=== PATIENT | female | born 1950 | race Caucasian/White ===

== ENCOUNTER 2022-07-08 13:38 | Day surgery (SDCO) | payer MEDICARE ==
[~2022-07-08] VITALS: Ht 152.4 cm; Wt 45.4 kg
[2022-07-08 16:02] LABS: ALBUMIN 3.5 g/dL (3.4-5.0); BASOPHIL 0.4 % (0-2); BILIRUBIN - TOTAL 0.9 mg/dL (0.2-1.0); CREATININE 0.75 mg/dL (0.51-0.95); EOSINOPHIL 0.1 % (0-7); GLOBULIN (CALCULATION) 3.6 g/dL; HCT 43.6 % (37.0-47.0); HGB 13.6 g/dl (12.5-16.0); LYMPHOCYTE 5.5 % (15-48); MCH 29.2 pg (25.0-31.0); MCHC 31.2 g/dL (32.0-36.0); MCV 93.6 fL (78.0-100.0); MONOCYTE 6.2 % (0-12); NEUTROPHIL 87.3 % (41-80); NRBC 0; PLT 210 K/uL (150-400); POTASSIUM 3.5 mmol/L (3.5-5.1); RBC 4.66 M/uL (4.20-5.40); RDW 16.3 % (11.5-14.0); TOTAL PROTEIN 7.1 g/dL (6.4-8.2); WBC 16.8 K/uL (4.0-10.5)
[2022-07-08 16:08] LABS: BILIRUBIN NEGATIVE (NEGATIVE); BLOOD 1+ Ery/uL (NEGATIVE); CLARITY HAZY (CLEAR); COLOR YELLOW (YELLOW); GLUCOSE (U) NORMAL (NORMAL); LEUKOCYTES 1+ Leu/uL (NEGATIVE); NITRITE POSITIVE (NEGATIVE); PROTEIN 1+ mg/dL (NEGATIVE); SPECIFIC GRAVITY 1.015 (1.001-1.030); pH 6.5 (5.0-9.0)
[2022-07-08 16:11] LABS: AMPHETAMINES NEGATIVE (NEGATIVE); BARBITURATES NEGATIVE (NEGATIVE); ECSTASY (MDMA) NEGATIVE (NEGATIVE); MARIJUANA (THC) NEGATIVE (NEGATIVE); METHADONE NEGATIVE (NEGATIVE); OPIATES NEGATIVE (NEGATIVE); OXYCODONE NEGATIVE (NEGATIVE)
[2022-07-08 16:17] LABS: BACTERIA 4+; MUCOUS MODERATE; SQUAMOUS EPITHELIAL CELLS RARE
[2022-07-08 17:01] LABS: LACTIC ACID 1.1 mmol/L (0.4-1.9)
--- NOTE | 2022-07-08 19:13 | NUR ---
PT TO FLOOR FROM ER. TAKE TO BR ON ADMIT TO FLOOR. PT HAS IV 22 LEFT F/A, WITH NS BOLUS PT IN GOOD CONDITION BED ALARM ON REPORT GIVEN TO NIGHT NURSE
--- NOTE | 2022-07-09 00:40 | NUR ---
1200: TYLENOL 325MG 2 TABLETS GIVEN FOR TEMPERATUE 100.7.
[2022-07-09 05:51] LABS: BASOPHIL 0.6 % (0-2); EOSINOPHIL 0.5 % (0-7); HCT 37.7 % (37.0-47.0); HGB 11.8 g/dl (12.5-16.0); LYMPHOCYTE 12.8 % (15-48); MCH 29.1 pg (25.0-31.0); MCHC 31.3 g/dL (32.0-36.0); MCV 92.9 fL (78.0-100.0); MPV 10.6 fL (6.0-9.5); NEUTROPHIL 77.4 % (41-80); NRBC 0; PLT 222 K/uL (150-400); RBC 4.06 M/uL (4.20-5.40); RDW 16.4 % (11.5-14.0); WBC 14.2 K/uL (4.0-10.5)
[2022-07-09 06:26] LABS: BUN/CREAT RATIO (CALC) 16.4 RATIO; CREATININE 0.67 mg/dL (0.51-0.95); POTASSIUM 3.5 mmol/L (3.5-5.1)
[2022-07-09] MEDS ORDERED: MACROBID100 MG PO (12:53)
--- NOTE | 2022-07-09 13:43 | NUR ---
PATIENT HAS NO PCP AND NO INSURANCE. WAS GIVEN INFORMATION ON THE [facility] FOR F/U
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
== END 2022-07-09 14:30 | disposition home or self-care (01) ==
LOC: FER 13:38 → FMS 16:30 → FER 18:26 → FMS 07-09 14:30
PROVIDERS: Nurse Practitioner Family; ADMIT Family Medicine
DX: A41.9 Sepsis, unspecified organism (principal); N30.01 Acute cystitis with hematuria; R53.1 Weakness; G93.40 Encephalopathy, unspecified; R73.03 Prediabetes; R73.9 Hyperglycemia, unspecified; R29.6 Repeated falls
CPT/HCPCS: 36415; 70450; 70553; 80048; 80053; 80305; 81001; 82550; 83036; 83605; 83880; 84484; 85025; 87040; 87076; 87088; 87186; 93005; 96372; 97162; A9579; G0378; J0696; J1650; J7030